=== PATIENT | male | born 1985 | race American Indian/Alaskan Native ===

== ENCOUNTER 2018-10-30 06:02 | Emergency (ER) | payer SELFPAY ==
[2018-10-30 07:46] VITALS: BP 123/72
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
== END 2018-10-30 09:31 | disposition home or self-care (01) ==
LOC: ED 06:02
DX: S02.2XXA Fracture of nasal bones, initial encounter for closed fracture (principal); R51 Headache; F12.10 Cannabis abuse, uncomplicated; Z98.890 Other specified postprocedural states; Y04.0XXA Assault by unarmed brawl or fight, initial encounter; Y93.89 Activity, other specified; Y92.009 Unspecified place in unspecified non-institutional (private) residence as the place of occurrence of the external cause; Y99.8 Other external cause status
CPT/HCPCS: 70450; 70486; 72125